=== PATIENT | male | born 1985 ===

== ENCOUNTER → 2020-04-22 16:18 | Outpatient (CLI) | payer BC, SELFPAY ==
[2020-04-22] MEDS: COVID-19 VACC(MODERNA-1)/PF 100 MCG/0.5 ML VIAL IM (16:24)
== END ==
PROVIDERS: Visit Provider Internal Medicine
DX: Z23 Encounter for immunization (principal)
CPT/HCPCS: 0011A; 91301

== ENCOUNTER → 2020-05-20 16:19 | Outpatient (CLI) | payer BC, SELFPAY ==
[2020-05-20] MEDS: COVID-19 VACC #2, MRNA(MOD) 100 MCG/0.5 ML VIAL IM (16:26)
== END ==
PROVIDERS: Visit Provider Internal Medicine
DX: Z23 Encounter for immunization (principal)
CPT/HCPCS: 0012A; 91301